=== PATIENT | male | born 1970 | race African-American/Black ===

== ENCOUNTER 2025-07-22 11:37 | Emergency (ER) | payer MEDICAID ==
[~2025-07-22] VITALS: Ht 182.9 cm; Wt 96.4 kg
[2025-07-22 11:44] VITALS: TEMP 98
--- NOTE | 2025-07-22 12:26 | ED.PDOC ---
History of Present Illness HPI Comments This is a 55-year old amle who presented to the ED with the chief complaint of low heart rate as recorded by home health nurse. The patient has a home health nurse to care for the left lower leg fracture, who noticed the patient has a ow heart rate in the 40s-50s, and he was sent to the ED on the recommendation of the PCP. He mentions being told about a low heart rate in the past too. He does not have any weakness, dizziness or chest discomfort. Chief Complaint: Abnormal LAB's Time Seen by MD: 12:00 Allergies: Coded Allergies: NO KNOWN ALLERGIES (Unverified , 07/22/25) Information Source: Patient Mode of Arrival: Wheelchair Severity: Moderate Timing: Hours Duration: Since onset Prehospital treatment: None Past Medical History PAST MEDICAL HISTORY: Denies Surgical History: Denies all surgeries Surgical History (Other): surgery for left distal leg fracture in april 2025 Family History Family History: Reviewed,noncontributory to illness Social History Smoker: Quit Greater Than 1 Year Alcohol: Occasionally Drugs: Marijuana Lives In: Home Constitutional: denies: chills, diaphoresis, fatigue, fever, malaise, sweats, weakness, others EENTM: denies: blurred vision, double vision, ear bleeding, ear discharge, ear drainage, ear pain, ear ringing, eye pain, eye redness, hearing loss, mouth pain, mouth swelling, nasal discharge, nose bleeding, nose congestion, nose pain, photophobia, tearing, throat pain, throat swelling, voice changes, others Respiratory: denies: cough, hemoptysis, orthopnea, SOB at rest, shortness of breath, SOB with excertion, stridor, wheezing, others Cardiovascular: denies: chest pain, dizzy spells, diaphoresis, Dyspnea on exertion, edema, irregular heart beat, left arm pain, lightheadedness, palpitations, PND, syncope, others Gastrointestinal: denies: abdomen distended, abdominal pain, blood streaked bowels, constipated, diarrhea, dysphagia, difficulty swallowing, hematemesis, melena, nausea, poor appetite, poor fluid intake, rectal bleeding, rectal pain, vomiting, others Genitourinary: denies: burning, dysuria, flank pain, frequency, hematuria, incontinence, penile discharge, penile sore, pain, testicle pain, testicle swelling, urgency, others Neurological: denies: dizziness, fainting, headache, left sided numbness, left sided weakness, numbness, paresthesia, pre-existing deficit, right sided numbness, right sided weakness, seizure, speech problems, tingling, tremors, weakness, others Musculoskeletal: denies: back pain, gout, joint pain, joint swelling, muscle pain, muscle stiffness, neck pain, others Integumetry: denies: bruises, change in color, change in hair/nails, dryness, laceration, lesions, lumps, rash, wounds, others Allergic/Immunocompromised: denies: Difficulty Healing, Frequent Infections, Hives, Itching, others Hematologic/Lymphatic: denies: anemia, blood clots, easy bleeding, easy bruising, swollen glands, others Endocrine: denies: excessive hunger, excessive sweating, excessive thirst, excessive urination, flushing, intolerance to cold, intolerance to heat, unexplained weight gain, unexplained weight loss, others Psychiatric: denies: anxiety, bipolar disorder, depression, hopeless, panic disorder, schizophrenia, sleepless, suicidal, others Physical Exam General Appearance: Normal HEENT: Normal ENT Inspection Neck: Full Range of Motion, Non-Tender, Normal Inspection Respiratory: Lungs Clear, No Respiratory Distress, Normal Breath Sounds Cardiovascular: No Edema, No Murmur, Normal Peripheral Pulses, Regular Rate/Rhythm Breast Exam: Normal Gastrointestinal: Non Tender, No Pulsatile Mass, Normal Bowel Sounds Genitalia: Deferred Pelvic: Deferred Rectal: Deferred Extremities: Normal capillary refill, No pedal edema, Other (external fixator on left lower leg) Neurologic: No Motor Deficits, Normal Affect, Normal Mood, No Sensory Deficits Cerebellar Function: Normal Reflexes: Normal Skin: Normal Color Lymphatic: No Adenopathy Was a procedure done? Was a procedure done?: No Differential Dx Considerations may include: sinus bradycardia X-Ray, Labs, Meds, VS Vital Signs Date Time Temp Pulse Resp B/P (MAP) Pulse Ox O2 Delivery O2 Flow Rate FiO2 07/22/25 11:56 44 07/22/25 11:44 98.0 52 12 143/93 98 98.0 Time of 1ST Reevaluation: 12:30 Reevaluation 1ST: Unchanged Patient Education/Counseling: Diagnosis, Treatment, Prognosis Family Education/Counseling: No Family Present SEPSIS Sepsis Screen Date sepsis recognized/suspect: Jul 22, 2025 Time Sepsis recognized/suspect: 1148 Recent Procedure: No On Antibiotic Therapy: No Respiratory Rate >20: No Heart Rate >90: No Temp<36 C (96.8 F) or >38.3 C: No SBP <90 or MAP <65 mmHG: No New Acute Mental Status Change: No Is the patient on CPAP, BIPAP,: No Physician Orders Electrocardigram (07/22/25 11:49) Complete Blood Count (07/22/25 12:11) Basic Metabolic Panel (07/22/25 12:11) Vital Signs Date Time Temp Pulse Resp B/P (MAP) Pulse Ox O2 Delivery O2 Flow Rate FiO2 07/22/25 11:56 44 07/22/25 11:44 98.0 52 12 143/93 98 98.0 Departure 1 Departure Time of Disposition: 12:30 Impression: Primary Impression: Sinus bradycardia Disposition: 30 STILL A PATIENT Condition: Fair Critical Care Note Critical Care Time?: No Stability Stability form required: DORIS Watson RESIDENT Jul 22, 2025 12:26
[2025-07-22 16:55] VITALS: BP 109/62; PULSE 109; RESP 18; O2SAT 100
--- NOTE | 2025-07-24 08:33 | ECG ---
[facility] Test Date: 2025-07-22 Test Time: 11:56:29 Pat Name: SEAN CEDENO Department: ED Room: Gender: M [employer]: : 1970 Requested By: ANJU BELL Order Number: [id number] Reading MD: Jacob Man Measurements Intervals [place] Rate: 44 P: 63 HI: 171 QRS: 95 QRSD: 90 T: 17 QT: 468 QTc: 401 Interpretive Statements Sinus bradycardia Atrial premature complexes Borderline right axis deviation Minimal ST elevation, lateral leads Electronically Signed On 07-24-2025 10:31:55 PST by Jacob Man Please click the below link to view image of tracing.
== END 2025-07-22 17:28 | disposition left against medical advice (07) ==
LOC: ER 11:37
DX: R00.1 Bradycardia, unspecified (principal); F10.90 Alcohol use, unspecified, uncomplicated; F12.90 Cannabis use, unspecified, uncomplicated; Z87.891 Personal history of nicotine dependence
CPT/HCPCS: 93005